=== PATIENT | male | born 1940 | race Caucasian/White ===

== ENCOUNTER → 2016-10-05 | Outpatient (REF) | payer MEDICARE ==
[2016-10-05 13:06] LABS: MEAN CORPUSCULAR HEMOGLOBIN 31.1 pg (27.0-33.0); MEAN CORPUSCULAR HGB CONC 33.3 g/dl (32.0-36.5); MEAN CORPUSCULAR VOLUME 93.3 fl (80.0-96.0); RED CELL DISTRIBUTION WIDTH 12.9 % (11.5-14.5); WHITE BLOOD COUNT 7.8 K/mm3 (4.0-10.0)
[2016-10-05 13:14] LABS: ALBUMIN/GLOBULIN RATIO 1.18 (1.00-1.93); ALKALINE PHOSPHATASE 99 U/L (45-117); ALT/SGPT 39 U/L (12-78); ANION GAP 4 MEQ/L (8-16); AST/SGOT 27 U/L (15-37); BILIRUBIN,TOTAL 0.4 MG/DL (0.2-1.0); BLOOD UREA NITROGEN 25 MG/DL (7-18); CALCIUM LEVEL 9.4 MG/DL (8.8-10.2); CARBON DIOXIDE LEVEL 31 MEQ/L (21-32); CHLORIDE LEVEL 107 MEQ/L (98-107); CHOLESTEROL LEVEL 207 MG/DL (<200); CREATININE FOR GFR 1.23 MG/DL (0.70-1.30); FREE T4 1.12 NG/DL (0.76-1.46); GLOMERULAR FILTRATION RATE > 60.0 (>42); GLUCOSE, FASTING 95 MG/DL (83-110); POTASSIUM SERUM 4.7 MEQ/L (3.5-5.1); SODIUM LEVEL 142 MEQ/L (136-145); TOTAL PROTEIN 7.4 GM/DL (6.4-8.2); TRIGLYCERIDES LEVEL 349 MG/DL (<150)
[2016-10-05 13:17] LABS: INR 0.98
== END ==
LOC: M SFHCADAM 09:30
PROVIDERS: ATTEND Family Medicine
DX: R23.8 Other skin changes (principal); D51.9 Vitamin B12 deficiency anemia, unspecified; E03.9 Hypothyroidism, unspecified; E78.2 Mixed hyperlipidemia; M10.9 Gout, unspecified; N18.2 Chronic kidney disease, stage 2 (mild); E55.9 Vitamin D deficiency, unspecified; R97.20 Elevated prostate specific antigen [PSA]; Z79.899 Other long term (current) drug therapy; I11.9 Hypertensive heart disease without heart failure
CPT/HCPCS: 69210; 80053; 80061; 82306; 84153; 84439; 84443; 84550; 85027; 85610; 85730; G0463

== ENCOUNTER → 2016-11-22 | Outpatient (CLI) | payer MEDICARE ==
--- NOTE | 2016-11-25 14:16 | ECHO ---
DATE OF PROCEDURE: 11/22/2016 REFERRING PHYSICIAN: Dr. Deangelo Blankenship INDICATION: Dyspnea. HEIGHT: 61 inches. WEIGHT: 190 pounds. 2D MEASUREMENTS: Left atrium: 3.7 cm Aortic root: 3.1 cm Ventricular septum: 1.07 cm Posterior wall: 1.92 cm Left ventricle diastole: 4.3 cm DOPPLER MEASUREMENTS: Very mild aortic stenosis. Mild to moderate aortic regurgitation. Aortic regurgitation pressure 435 ms. Peak aortic valve gradient: 21 mmHg. Mean aortic valve gradient: 11 mmHg. Peak aortic valve velocity: 227 cm/s LVOT velocity: 117 cm/s LVOT/VTI: 26.2 cm Trace mitral regurgitation. Mitral E velocity: 125 cm/s Mitral A velocity: 140 cm/s Mitral deceleration time: 401 ms Trace tricuspid regurgitation. Pulmonary systolic pressure 17 mmHg by pulmonary acceleration time. MITRAL ANNULAR TISSUE DOPPLER: E-prime septal: 5.6 cm/s E-prime lateral: 4.8 cm/s DESCRIPTION: Rhythm was sinus bradycardia. No pericardial effusion. Image quality was moderately difficult. This is a 2D, M-mode, color flow Doppler, and pulse wave Doppler examination, including mitral annular tissue Doppler. CONCLUSIONS: 1. Normal left ventricular internal dimensions and wall thickness. Normal left ventricular wall motion and wall thickening. Normal left ventricular systolic function. Left ventricular ejection fraction of 70% by visual estimate. Grade 1 left ventricular diastolic dysfunction. 2. Moderate aortic valve sclerosis of a three-cuspid aortic valve. Very mild aortic stenosis and mild-moderate aortic regurgitation. 3. Moderate mitral annular calcification. Moderate focal thickening of the anterior mitral leaflet. No mitral stenosis. Trace mitral regurgitation.
== END ==
LOC: M CARPUL 09:03
PROVIDERS: ATTEND Family Medicine
DX: R06.09 Other forms of dyspnea (principal)

== ENCOUNTER → 2016-12-19 | Outpatient (REF) | payer MEDICARE ==
[2016-12-19 13:08] LABS: MEAN CORPUSCULAR HEMOGLOBIN 31.6 pg (27.0-33.0); MEAN CORPUSCULAR HGB CONC 33.5 g/dl (32.0-36.5); MEAN CORPUSCULAR VOLUME 94.3 fl (80.0-96.0); RED CELL DISTRIBUTION WIDTH 13.3 % (11.5-14.5); WHITE BLOOD COUNT 11.2 K/mm3 (4.0-10.0)
[2016-12-19 13:40] LABS: ALBUMIN 3.7 GM/DL (3.2-5.2); ALBUMIN/GLOBULIN RATIO 1.09 (1.00-1.93); BILIRUBIN,TOTAL 0.4 MG/DL (0.2-1.0); CALCIUM LEVEL 9.5 MG/DL (8.8-10.2); CREATININE FOR GFR 1.64 MG/DL (0.70-1.30); GLOMERULAR FILTRATION RATE 43.9 (>42); POTASSIUM SERUM 4.9 MEQ/L (3.5-5.1); TOTAL PROTEIN 7.1 GM/DL (6.4-8.2)
== END ==
LOC: M SFHCADAM 10:14
PROVIDERS: ATTEND Family Medicine
DX: N18.2 Chronic kidney disease, stage 2 (mild) (principal); R39.89 Other symptoms and signs involving the genitourinary system
CPT/HCPCS: 80053; 81001; 85027; 87088; 87186; G0463

== ENCOUNTER → 2017-04-13 | Outpatient (REF) | payer MEDICARE ==
[2017-04-13 19:33] LABS: MEAN CORPUSCULAR HEMOGLOBIN 30.7 pg (27.0-33.0); MEAN CORPUSCULAR VOLUME 92.8 fl (80.0-96.0); PLATELET COUNT, AUTOMATED 142 10^3/uL (150-450); RED CELL DISTRIBUTION WIDTH 12.7 % (11.5-14.5); WHITE BLOOD COUNT 7.7 10^3/uL (4.0-10.0)
[2017-04-13 19:40] LABS: ALBUMIN 3.8 GM/DL (3.2-5.2); ALBUMIN/GLOBULIN RATIO 1.27 (1.00-1.93); BILIRUBIN,TOTAL 0.5 MG/DL (0.2-1.0); CALCIUM LEVEL 9.2 MG/DL (8.8-10.2); CREATININE FOR GFR 1.47 MG/DL (0.70-1.30); GLOMERULAR FILTRATION RATE 49.9 (>42); TOTAL PROTEIN 6.8 GM/DL (6.4-8.2)
[2017-04-13 19:42] LABS: POTASSIUM SERUM 5.6 MEQ/L (3.5-5.1)
== END ==
LOC: M SFHCADAM 11:34
PROVIDERS: ATTEND Physician Assistant
DX: N30.00 Acute cystitis without hematuria (principal)
CPT/HCPCS: 80053; 85027; G0463

== ENCOUNTER → 2017-04-30 | Outpatient (REF) | payer MEDICARE | LOC: M SMT 13:05 | PROVIDERS: ATTEND Urology | DX: N39.0 Urinary tract infection, site not specified (principal) | CPT/HCPCS: 51798; 81001; 87088; 87186; G0463 ==

== ENCOUNTER → 2017-05-28 | Outpatient (REF) | payer MEDICARE | LOC: M SMT 13:38 | PROVIDERS: ATTEND Urology | DX: N39.0 Urinary tract infection, site not specified (principal) | CPT/HCPCS: 51798; 87086; G0463 ==

== ENCOUNTER → 2017-10-18 | Outpatient (REF) | payer MEDICARE ==
[2017-10-18 13:59] LABS: VITAMIN B12 LEVEL 769 PG/ML
[2017-10-18 14:02] LABS: URIC ACID 5.7 MG/DL (3.5-7.2)
[2017-10-18 14:02] LABS: RHEUMATOID FACTOR QUANT < 10.0 IU/ML (<15.0); TOTAL PROTEIN 7.5 GM/DL (6.4-8.2)
[2017-10-18 14:25] LABS: ERYTHROCYTE SEDIMENTATION RATE 15 mm/hr (0-20)
[2017-10-18 14:56] LABS: ESTIMATED AVERAGE GLUCOSE 131 MG/DL (60-110); HEMOGLOBIN A1c 6.2 %
[2017-10-22 11:00] LABS: ALBUMIN 4.36 GM/DL (3.29-5.55); ALBUMIN % 58.1 % (55.8-66.1); ALPHA-1-GLOBULIN % 4.2 % (2.9-4.9); ALPHA-1-GLOBULINS 0.32 GM/DL (0.17-0.41); ALPHA-2-GLOBULINS 0.86 GM/DL (0.42-0.99); ALPHA-2-GLOBULINS % 11.4 % (7.1-11.8); BETA-1-GLOBULINS 0.44 GM/DL (0.28-0.60)
[2017-10-22 11:01] LABS: BETA-1-GLOBULINS % 5.9 % (4.7-7.2); BETA-2-GLOBULINS 0.46 GM/DL (0.19-0.55); BETA-2-GLOBULINS % 6.1 % (3.2-6.5); GAMMA GLOBULIN % 14.3 % (11.1-18.8); GAMMA GLOBULINS 1.07 GM/DL (0.65-1.58)
[2017-10-23 00:06] LABS: ANTINUCLEAR ANTIBODIES DIRECT Negative (Negative); VITAMIN B6,PYRIDOXAL PHOSPHATE 3.2 ug/L (5.3-46.7); VITAMIN E(ALPHA TOCOPHEROL) 11.8 mg/L (9.0-29.0); VITAMIN E(GAMMA TOCOPHEROL) 3.7 mg/L (0.5-4.9)
[2017-10-23 09:07] LABS: DRVV SCREEN 45.9 SEC; PTT LUPUS TYPE ANTICOAG SCREEN 1.1 (0-1.2)
== END ==
LOC: M LABNEURO 11:14
DX: G62.9 Polyneuropathy, unspecified (principal)
CPT/HCPCS: 82746

== ENCOUNTER → 2017-11-28 | Outpatient (REF) | payer MEDICARE ==
[2017-11-28 12:35] LABS: HEMOGLOBIN 15.6 g/dl (13.5-17.5); MEAN CORPUSCULAR HEMOGLOBIN 30.6 pg (27.0-33.0); MEAN CORPUSCULAR HGB CONC 33.2 g/dl (32.0-36.5); MEAN CORPUSCULAR VOLUME 92.2 fl (80.0-96.0); PLATELET COUNT, AUTOMATED 178 10^3/uL (150-450); RED CELL DISTRIBUTION WIDTH 13.3 % (11.5-14.5); WHITE BLOOD COUNT 14.7 10^3/uL (4.0-10.0)
[2017-11-28 13:17] LABS: ALBUMIN 3.9 GM/DL (3.2-5.2); ALBUMIN/GLOBULIN RATIO 1.18 (1.00-1.93); ALKALINE PHOSPHATASE 96 U/L (45-117); ALT/SGPT 46 U/L (12-78); ANION GAP 8 MEQ/L (8-16); AST/SGOT 15 U/L (7-37); BILIRUBIN,TOTAL 0.4 MG/DL (0.2-1.0); BLOOD UREA NITROGEN 44 MG/DL (7-18); CALCIUM LEVEL 9.2 MG/DL (8.8-10.2); CARBON DIOXIDE LEVEL 24 MEQ/L (21-32); CHLORIDE LEVEL 106 MEQ/L (98-107); CHOLESTEROL LEVEL 185 MG/DL (<200); CHOLESTEROL RISK RATIO 6.379 (<5); CREATININE FOR GFR 1.42 MG/DL (0.70-1.30); GLOMERULAR FILTRATION RATE 51.7 (>42); GLUCOSE, FASTING 116 MG/DL (70-100); HDL CHOLESTEROL 29 MG/DL (>40); LDL CHOLESTEROL 94.8 MG/DL (<100); NON-HDL-C 156 MG/DL; SODIUM LEVEL 138 MEQ/L (136-145); TOTAL PROTEIN 7.2 GM/DL (6.4-8.2); TRIGLYCERIDES LEVEL 306 MG/DL (<150); URIC ACID 4.7 MG/DL (3.5-7.2)
== END ==
LOC: M SFHCADAM 10:28
DX: N18.2 Chronic kidney disease, stage 2 (mild) (principal); I11.9 Hypertensive heart disease without heart failure; M10.9 Gout, unspecified; E78.2 Mixed hyperlipidemia; G90.09 Other idiopathic peripheral autonomic neuropathy; E53.1 Pyridoxine deficiency; E03.9 Hypothyroidism, unspecified; D51.9 Vitamin B12 deficiency anemia, unspecified; I13.10 Hypertensive heart and chronic kidney disease without heart failure, with stage 1 through stage 4 chronic kidney disease, or unspecified chronic kidney disease; R97.20 Elevated prostate specific antigen [PSA]; E74.9 Disorder of carbohydrate metabolism, unspecified; N40.1 Benign prostatic hyperplasia with lower urinary tract symptoms; Z79.899 Other long term (current) drug therapy
CPT/HCPCS: 84550

== ENCOUNTER → 2018-10-23 | Outpatient (REF) | payer MEDICARE ==
[2018-10-23 12:27] LABS: HEMATOCRIT 44.5 % (42.0-52.0); HEMOGLOBIN 14.2 g/dl (13.5-17.5); MEAN CORPUSCULAR HEMOGLOBIN 29.7 pg (27.0-33.0); MEAN CORPUSCULAR HGB CONC 31.9 g/dl (32.0-36.5); MEAN CORPUSCULAR VOLUME 93.1 fl (80.0-96.0); PLATELET COUNT, AUTOMATED 151 10^3/uL (150-450); RED BLOOD COUNT 4.78 10^6/uL (4.30-6.10); WHITE BLOOD COUNT 10.7 10^3/uL (4.0-10.0)
[2018-10-23 12:41] LABS: ALBUMIN 3.6 GM/DL (3.2-5.2); BILIRUBIN,TOTAL 0.4 MG/DL (0.2-1.0); CALCIUM LEVEL 9.1 MG/DL (8.8-10.2); CHOLESTEROL RISK RATIO 6.4 (<5); CREATININE FOR GFR 1.45 MG/DL (0.70-1.30); FREE T4 1.53 NG/DL (0.76-1.46); GLOMERULAR FILTRATION RATE 50.4 (>42); POTASSIUM SERUM 4.6 MEQ/L (3.5-5.1); THYROID STIMULATING HORMONE 0.119 uIU/ML (0.358-3.740); TOTAL PROTEIN 6.7 GM/DL (6.4-8.2); URIC ACID 4.9 MG/DL (3.5-7.2)
[2018-10-23 12:43] LABS: TOTAL 25(OH) VITAMIN D 57.5 NG/ML (30.0-100.0)
== END ==
LOC: M SFHCADAM 08:52
PROVIDERS: ATTEND Family Medicine
DX: N18.2 Chronic kidney disease, stage 2 (mild) (principal); E11.22 Type 2 diabetes mellitus with diabetic chronic kidney disease; E03.9 Hypothyroidism, unspecified; E78.2 Mixed hyperlipidemia; Z12.5 Encounter for screening for malignant neoplasm of prostate; M10.9 Gout, unspecified; E55.9 Vitamin D deficiency, unspecified
CPT/HCPCS: 80053; 80061; 82306; 84439; 84443; 84550; 85027; G0103

== ENCOUNTER → 2018-12-18 | Outpatient (CLI) | payer MEDICARE ==
[~2018-12-18] MED LIST: BIMA01SOL OU; BISO5TAB5 PO; CIDA500T2 PO; COSO1SOL3 OD; D 50CAP3 PO; EUFL10IN IX; FEBU40TA PO; FLOM0.4C39 PO; LEVO175T2 PO; LISI-542 PO; LYRI75CA PO; NEUR600T PO; PROS5TAB PO; TRUS1SOL OU
[2018-12-18 09:39] LABS: HEMATOCRIT 44.7 % (42.0-52.0); HEMOGLOBIN 14.6 g/dl (13.5-17.5); MEAN CORPUSCULAR HEMOGLOBIN 30.4 pg (27.0-33.0); MEAN CORPUSCULAR HGB CONC 32.7 g/dl (32.0-36.5); MEAN CORPUSCULAR VOLUME 93.1 fl (80.0-96.0); PLATELET COUNT, AUTOMATED 143 10^3/uL (150-450); WHITE BLOOD COUNT 8.3 10^3/uL (4.0-10.0)
[2018-12-18 09:53] LABS: INR 0.99; PROTHROMBIN TIME 12.8 SECONDS (11.8-14.0)
[2018-12-18 10:06] LABS: ALBUMIN 3.6 GM/DL (3.2-5.2); BILIRUBIN,TOTAL 0.4 MG/DL (0.2-1.0); CALCIUM LEVEL 9.5 MG/DL (8.8-10.2); CREATININE FOR GFR 1.74 MG/DL (0.70-1.30); GLOMERULAR FILTRATION RATE 40.8 (>42); TOTAL PROTEIN 6.9 GM/DL (6.4-8.2)
--- NOTE | 2018-12-18 10:23 | REP ---
Clinical: Preoperative assessment for right knee arthroplasty . Comparison: None . Technique: PA and lateral. Findings: The mediastinum and cardiac silhouette are normal. The lung pearce are clear and without acute consolidation, effusion, or pneumothorax. The skeletal structures are intact and normal. Impression: 1. No acute cardiopulmonary process. Electronically Signed by Riley Gil MD 12/18/2018 10:14 A
[2018-12-18 10:37] LABS: ERYTHROCYTE SEDIMENTATION RATE 16 mm/hr (0-20)
--- NOTE | 2018-12-19 23:59 | ECGEPIP ---
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
== END ==
LOC: M LAB 08:58
PROVIDERS: ATTEND Orthopaedic Surgery
DX: M17.11 Unilateral primary osteoarthritis, right knee (principal); I44.7 Left bundle-branch block, unspecified

== ENCOUNTER → 2019-01-01 | Outpatient (REF) | payer MEDICARE ==
[~2019-01-01] MED LIST changes: +CIPR-249 PO; +KEFL500C17 PO; +PERC5TAB12 PO; +XARE10TA PO
[2019-01-01 12:51] LABS: FREE T4 1.05 NG/DL (0.76-1.46); THYROID STIMULATING HORMONE 0.304 uIU/ML (0.358-3.740)
== END ==
LOC: M SFHCADAM 10:25
PROVIDERS: ATTEND Family Medicine
DX: E03.9 Hypothyroidism, unspecified (principal)
CPT/HCPCS: 84439; 84443; G0463

== ENCOUNTER 2019-01-08 06:45 | Inpatient (IN) | payer MEDICARE ==
--- NOTE | 2019-01-06 16:18 | HPE ---
DATE OF ADMISSION: 01/08/2019 CHIEF COMPLAINT: Right knee pain. HISTORY OF PRESENT ILLNESS: Mr. South is a pleasant, 78-year-old male with progressively worsening right knee pain and stiffness. He has failed to improve with conservative treatment. He has elected for surgery for his continued symptoms. He has pain with weightbearing activities and his activities of daily living. X-rays of his knee are notable for advanced osteoarthritis of the right knee joint. He has consented for a right total knee arthroplasty by Dr. Camden Calderon. Medical optimization was performed by Dr. Blankenship. ALLERGIES: SULFUR and PENICILLIN. CURRENT MEDICATIONS: - levothyroxine - bisoprolol - Uloric - Lumigan eye drops - Timolol eye drops - Flomax - vitamin B6 - vitamin B12 injection and iron - Tylenol as needed PAST MEDICAL HISTORY: Includes high blood pressure and hypothyroidism. PAST SURGICAL HISTORY: Includes appendix, gallbladder surgery, cataracts removal of both eyes. SOCIAL HISTORY: This gentleman is retired. He does not smoke, occasionally drinks alcohol. FAMILY HISTORY: Is noncontributory. REVIEW OF SYSTEMS: This patient denies chest pain, heart palpitations, cough, wheezing, difficulty breathing and shortness of breath. He denies abdominal pain, nausea, vomiting, diarrhea, or constipation. He denies recent upper respiratory infection or urinary tract infection symptoms. He does complain of persistent pain in the right knee. PHYSICAL EXAMINATION: General: He is well-nourished, well-developed, in no acute distress, alert male patient. He ambulates with a moderate limp favoring the right side. He is not using assistive devices. Vital signs: He is 70 inches tall, weighs 192.6 pounds with a temperature of 97.4, blood pressure 120/62, pulse of 63, and respirations of 14. Neck was supple without adenopathy or jugular venous distension. There were no carotid bruits appreciated upon auscultation. Lungs were clear to auscultation without rales or wheeze throughout. Heart: Regular rate and rhythm. Abdomen: Bowel sounds were present. Extremities: Examination of the knee revealed intact skin. Patient had decreased range of motion secondary to pain and stiffness. The limb is neurovascularly intact. Chest x-ray showed no acute cardiopulmonary disease processes. EKG showed sinus rhythm with a left bundle branch block at 72 beats per minute. ProTime 12.8, INR 0.99. Glucose 121, BUN 28, creatinine 1.74 for a GFR of 40.8. Sodium 141, potassium 5.0. CBC showed a platelet count of 143, otherwise within normal limits with a sed rate of 16. IMPRESSION: Symptomatic osteoarthritis of the right knee joint. PLAN: Consented for a right total knee arthroplasty by Dr. Camden Calderon.
[2019-01-08] VITALS (7 sets, daily range): BP systolic 119–141; BP diastolic 65–76
[~2019-01-08] VITALS: Ht 180.3 cm; Wt 89.7 kg
[~2019-01-08 06:45] MED LIST changes: -CIPR-249 PO; -KEFL500C17 PO; +LR 1,000 ML IV ONE; -PERC5TAB12 PO; -XARE10TA PO
[2019-01-08] MEDS ORDERED: PROPOFOL 200 MG/20 ML VIAL As Ordered ONE (07:38)
[2019-01-08] MEDS ORDERED: CLINDAMYCIN 900 MG/50 ML PREMIX BAG As Ordered ONE (07:39)
[2019-01-08] MEDS ORDERED: BUPIVACAINE LIPOSOME/PF 1.3% 20ML VIAL (13.3MG/ML)(EXPAREL)(C9290 PER1MG) As Ordered ONE (07:40)
[2019-01-08] MEDS ORDERED: LIDOCAINE 2% INJ 100 MG/5 ML SDV (FOR ANES.) As Ordered ONE (07:40)
[2019-01-08] MEDS ORDERED: dexameTHASONE 4 MG/ML 1ML VIAL (J1100) As Ordered ONE (07:40)
[2019-01-08] MEDS ORDERED: BUPIVACAINE/DEXTROSE 0.75% 2 ML AMP As Ordered ONE (07:40)
[2019-01-08] MEDS ORDERED: CLINDAMYCIN INJ 900MG/6ML VIAL As Ordered ONE (07:40)
[2019-01-08] MEDS ORDERED: TRANEXAMIC ACID 100 MG/ML 10ML VIAL As Ordered ONE (07:40)
[2019-01-08] MEDS ORDERED: ONDANSETRON 4MG/2ML VIAL (J2405) As Ordered ONE (07:40)
[2019-01-08] MEDS ORDERED: EPINEPHrine INJ 1 MG/ML 1ML AMP As Ordered ONE (07:40)
[2019-01-08] MEDS ORDERED: MIDAZOLAM INJ 2 MG/2 ML VIAL (J2250) As Ordered ONE ×2 (07:42→08:21)
[2019-01-08] MEDS ORDERED: fentaNYL 100 MCG/2 ML INJECTION (J3010) As Ordered ONE ×2 (07:42→08:21)
--- NOTE | 2019-01-08 07:43 | IPN ---
DATE: 01/08/2019 Patient seen and examined. He wishes to go ahead with a right knee arthroplasty. He understands the nature of the procedure, the risks of bleeding, infection, damage to nerves, vessels, persistent pain, wear loosening, blood clots, medical problems, among others. And a preoperative medical evaluation was done.
[2019-01-08] MEDS ORDERED: CLINDAMYCIN 900 MG in APPROPRIATE DILUENT 1 EA IV ONE (08:00)
[2019-01-08] MEDS ORDERED: CIPR-249 PO (08:16)
[2019-01-08] MEDS ORDERED: fentaNYL 100 MCG/2 ML INJECTION (J3010) IV ONE (09:00)
[2019-01-08] MEDS ORDERED: MIDAZOLAM INJ 2 MG/2 ML VIAL (J2250) IV ONE (09:00)
[2019-01-08] MEDS ORDERED: ePHEDrine SULFATE 25 MG/5 ML(5MG/ML) SYRINGE As Ordered ONE (09:55)
[2019-01-08] MEDS ORDERED: dexameTHASONE 10 MG/1 ML VIAL PRES.FREE (J1100) ONE (10:32)
[2019-01-08] MEDS ORDERED: EPINEPHrine INJ 1 MG/ML 1ML AMP ONE (10:32)
[2019-01-08] MEDS ORDERED: ROPIvacaine 0.5% 30 ML INJECTION (J2795 PER 1MG) ONE (10:32)
[2019-01-08] MEDS ORDERED: ONDANSETRON 4MG/2ML VIAL (J2405) IV PRN ×2 (11:30→12:00)
[2019-01-08] MEDS: LR 1,000 ML IV SCH (11:30)
[2019-01-08] MEDS ORDERED: FLEET ENEMA PR PRN (11:30)
[2019-01-08] MEDS ORDERED: MORPHINE 4 MG/ML 1ML VIAL/SYRINGE (J2270) IV PRN ×2 (11:30)
[2019-01-08] MEDS ORDERED: ACETAMINOPHEN TAB 650MG DOSE (2X325MG) PO PRN (11:30)
--- NOTE | 2019-01-08 11:45 | REP ---
Right knee two views postoperative study: There is a total knee arthroplasty with the components tightly applied and in satisfactory positions alignment. Intra-articular air and fluid are incidentally identified is a postsurgical change. Skin osman are incidentally noted. Electronically Signed by Louis Cobian MD 01/08/2019 11:35 A
[2019-01-08] MEDS ORDERED: oxyCODONE 5MG TAB PO PRN (12:00)
[2019-01-08] MEDS ORDERED: fentaNYL 100 MCG/2 ML INJECTION (J3010) IV PRN (12:00)
[2019-01-08] MEDS ORDERED: LR 1,000 ML IV SCH (12:00)
[2019-01-08] MEDS: NORCO, ANEXSIA 5/325MG TABLET (HYDROcodone/ACETAMINOPHEN) PO PRN ×2 (14:54→20:28)
--- NOTE | 2019-01-08 15:33 | CR.PDOC ---
General Date of Consultation: Jan 08, 2019 Consultation REASON FOR CONSULTATION/CHIEF COMPLAINT: Presented to [facility] for an elective orthopedic procedure HISTORY OF PRESENT ILLNESS: Patient is a 78-year-old male with a past medical history of hypertension, hypothyroidism, BPH and glaucoma who presented to [facility] for an elective procedure with orthopedic surgery. Patient has received medical clearance from his outpatient provider, Dr. Blankenship. Patient received blood work, EKG and chest x-ray and did not require cardiac clearance. Patient has reported that hes been expressing knee pain for 5-6 years and has failed conservative measures. Patient is seen postoperatively for his total right knee arthroplasty. . He denies headache, nausea, vomiting, chest pain, shortness of breath, cough, abdominal pain, constipation, diarrhea or discomfort with urination. . He has not expense any fevers or chills in the last 2 weeks. Patient reports that his appetite is normal and denies any significant change in his weight. ALLERGIES: Please see below. HOME MEDICATIONS: Please see below. PAST MEDICAL HISTORY: Hypertension, hypothyroidism, BPH and glaucoma PAST SURGICAL HISTORY: Appendectomy Bilateral cataract excision FAMILY HISTORY: - Mother and father have no reported medical problems SOCIAL HISTORY: - Denies the use of alcohol or illicit drugs; patient is an ex-smoker - quit 15 years ago - Denies recent travel or sick contacts - Lives with in [place] - Occupation; was a superintendent production REVIEW OF SYSTEMS: 10 point review of systems complete, all negative otherwise stated in HPI PHYSICAL EXAMINATION: - Vitals: BP 119/71, HR 85, RR 18, Sat 96%RA, Temp 97.8F - General: Lying in bed, No acute distress, Speaking in full sentences, AAOx3 - HEENT: NC, AT, PERRLA - CVS:+S1S2 - Lungs: Fair air entry bilaterally, No appreciable wheezing / rales / rhonchi - Abdomen: Soft, Non-distended, Non-tender - Extremities: No lower extremity edema, No calf tenderness, left knee in dressing - Neuro: No focal motor or sensory deficit - Skin: No visible rashes LABORATORY DATA: Please see below. ASSESSMENT/PLAN: Right knee pain - s/p total right knee arthroplasty (POD#0) - Presented to [facility] for an elective orthopedic procedure - Has received medical clearance from his outpatient provider, Dr. Wetterhahn - Pain control, anticoagulation and physical therapy at the direction of orthopedic surgery Hypertension - c/w Lisinopril and Bisoprolol with holding parameters Hypothyroidism - c/w Levothyroxine BPH - c/w Finasteride and Tamsulosin Gout - c/w Febuxostat Glaucoma - c/w Eye drops Vitamin D deficiency - c/w Supplementation DVT prophylaxis - As per orthopedic surgery Vital Signs/I&O Vital Signs Date Time Temp Pulse Resp B/P (MAP) Pulse Ox O2 Delivery O2 Flow Rate FiO2 01/08/19 15:15 97.8 85 18 119/71 (87) 96 01/08/19 09:15 4 Allergies Coded Allergies: Penicillins (Verified Allergy, Intermediate, HIVES, 12/25/18) Sulfa (Sulfonamide Antibiotics) (Verified Allergy, Unknown, 12/25/18) brimonidine (Verified Allergy, Unknown, 12/25/18) Home Medications Scheduled Bimatoprost (Lumigan) 0.01% 2.5ML Drops, 1 DROP OU QPM for 30 Days, #2.5 (Reported) Bisoprolol Fumarate (Bisoprolol Fumarate) 5 Mg Tablet, 2.5 MG PO DAILY, (Reported) Cholecalciferol (Vitamin D3) (Vitamin D3) 5,000 Unit Capsule, 5,000 UNIT PO DAILY, (Reported) Ciprofloxacin HCl (Cipro) 500 Mg Tablet, 500 MG PO BID for 7 Days, #14 (Reported) Dorzolamide HCl/Timolol Maleat (Cosopt Eye Drops) 10 Ml Drops, 1 DROP OD BID, (Reported) Febuxostat (Uloric) 40 Mg Tablet, 40 MG PO DAILY, (Reported) Finasteride (Proscar) 5 Mg Tablet, 5 MG PO DAILY, (Reported) Levothyroxine Sodium (Levothyroxine Sodium) 175 Mcg Tablet, 175 MCG PO DAILY, (Reported) Lisinopril (Lisinopril) 5 Mg Tablet, 5 MG PO DAILY, (Reported) Pregabalin (Lyrica) 75 Mg Capsule, 75 MG PO BID, (Reported) Tamsulosin HCl (Flomax) 0.4 Mg Capsule, 1 CAP PO DAILY, (Reported) once daily 1/2 hour following the same meal each day SIMEON SADLER MD Jan 08, 2019 15:33
[2019-01-08] MEDS: CLINDAMYCIN 900 MG in APPROPRIATE DILUENT 1 EA IV SCH (16:12)
[2019-01-08] MEDS: LATANOPROST 0.005% OPHTH SOLN 2.5 ML OU SCH (20:26)
[2019-01-08] MEDS: COSOPT OCUMETER PLUS 10ML (DORZOLAMIDE/TIMOLOL) OD SCH (20:26)
[2019-01-08] MEDS: PREGABALIN 75 MG CAP(LYRICA) PO SCH (20:27)
[2019-01-09] MEDS: CLINDAMYCIN 900 MG in APPROPRIATE DILUENT 1 EA IV SCH (00:26)
[2019-01-09] MEDS: LR 1,000 ML IV SCH (00:50)
[2019-01-09] MEDS: NORCO, ANEXSIA 5/325MG TABLET (HYDROcodone/ACETAMINOPHEN) PO PRN (01:58)
[2019-01-09 02:00] VITALS: BP 150/66
[2019-01-09] MEDS: NS 0.45% 1,000 ML IV SCH ×3 (02:00→17:06)
[2019-01-09 06:00] VITALS: BP 124/72
[2019-01-09] MEDS ORDERED: ONDANSETRON 4 MG TAB (S0181) PO PRN (06:00)
[2019-01-09] MEDS: LEVOTHYROXINE 75MCG TABLET (0.075MG) PO SCH (06:11)
[2019-01-09] MEDS: LEVOTHYROXINE 100MCG TABLET (0.1MG) PO SCH (06:11)
[2019-01-09] MEDS: PERCOCET 5MG/325MG TAB PO PRN ×3 (06:12→22:25)
[2019-01-09 06:26] LABS: MEAN CORPUSCULAR HEMOGLOBIN 30.4 pg (27.0-33.0); MEAN CORPUSCULAR HGB CONC 33.3 g/dl (32.0-36.5); MEAN CORPUSCULAR VOLUME 91.1 fl (80.0-96.0); PLATELET COUNT, AUTOMATED 143 10^3/uL (150-450); RED BLOOD COUNT 4.28 10^6/uL (4.30-6.10)
[2019-01-09 06:49] LABS: CALCIUM LEVEL 9.2 MG/DL (8.8-10.2); CREATININE FOR GFR 1.99 MG/DL (0.70-1.30); MAGNESIUM LEVEL 1.8 MG/DL (1.8-2.4); PHOSPHORUS LEVEL 3.7 MG/DL (2.5-4.9); POTASSIUM SERUM 4.8 MEQ/L (3.5-5.1)
[2019-01-09] MEDS ORDERED: PERC5TAB12 PO (06:55)
[2019-01-09] MEDS ORDERED: XARE10TA PO (06:56)
[2019-01-09] MEDS: ceFAZolin SOD 1 GM in D5W MINI-BAG PLUS 50 ML IV SCH ×2 (08:22→21:29)
[2019-01-09] MEDS: PREGABALIN 75 MG CAP(LYRICA) PO SCH ×2 (08:23→21:29)
[2019-01-09] MEDS: FEBUXOSTAT 40 MG TABLET (ULORIC) PO SCH (08:23)
[2019-01-09] MEDS: MIRALAX *UNIT DOSE* 17GM PACKET PO SCH (08:23)
[2019-01-09] MEDS: BISOPROLOL FUM 2.5 MG PER 1/2TAB PO SCH (08:23)
[2019-01-09] MEDS: VITAMIN D 1,000 INTERNATIONAL UNITS TABLET PO SCH (08:23)
[2019-01-09] MEDS: MOM 30ML SUSPENSION UDC PO SCH (08:23)
[2019-01-09] MEDS: FINASTERIDE 5 MG TAB PO SCH (08:23)
[2019-01-09] MEDS: COSOPT OCUMETER PLUS 10ML (DORZOLAMIDE/TIMOLOL) OD SCH ×2 (08:24→21:29)
--- NOTE | 2019-01-09 08:32 | IPN ---
DATE: 01/09/2019 I am trying to decide on antibiotic therapy for Mr. South's urinary issue. I want to avoid quinolones as he is in acute kidney injury. He has penicillin listed as an allergy. Further discussion of the case that this was a childhood reaction with a rash. There was no anaphylaxis, angioedema, and he said it happened so long ago he was not sure even what his reaction was. Therefore, per current guidelines, it should be safe to use Ancef and I have ordered a gram every 12 hours the dose adjusted for renal function.
--- NOTE | 2019-01-09 08:39 | IPN ---
DATE: 01/09/2019 Richard is seen on 5 [place] postoperatively. He underwent a right knee replacement yesterday. He is manifesting some acute kidney injury with a creatinine of 1.99 (baseline 1.4). On further discussion, Richard reveals that he was actually in [facility] emergency room on 01/06/2019 diagnosed with a urinary tract infection, put on Cipro, but per patient was told that it was safe for him to proceed with his joint replacement. So, he did not mention this to anyone when he came in yesterday for his joint replacement surgery, having been reassured that he could safely proceed by the provider at [facility]. Now he has some acute kidney injury and apparently has been taking Cipro. Denies chest pain, shortness of breath. His oral intake was decreased the last few days secondary to feeling ill from the UTI. PHYSICAL EXAMINATION: 124/71, pulse 97, respiratory rate 18, 96% oxygen saturation. General appearance: Alert and conversant, in no distress. Lungs: Clear. Heart: Regular rate and rhythm with a 2/6 systolic ejection murmur. Abdomen: Soft, nontender, no masses. No peripheral edema. LABS: Sodium 136, potassium 4.8, BUN 29, creatinine 1.99 (baseline 1.4). White count 21,000, hemoglobin 13, platelets 143. IMPRESSION: 1. Acute kidney injury. Probably from volume depletion due to poor oral intake prior to his surgery as well as some effects of the Cipro. I have ordered some half normal saline, repeat lab work ordered for the morning. I talked to orthopedics, I think he should stay overnight and will reassess whether he is stable for discharge tomorrow. 2. Suspected UTI. His symptoms could be prostatitis instead of a cystitis. He is having trouble emptying his bladder, burning and some perineal discomfort. I called [facility] and the cultures has not been resulted yet. I spoke to the charge nurse in the ER, I gave her my telephone number and asked her to called me when this comes out. If this is prostatitis it is likely that the urine culture will be negative. I would recommend we continue antibiotic therapy directed towards either a UTI or prostatitis in the meantime and I have ordered some Ancef. I should note he had an E. coli UTI 11/2016 that was pansensitive. 3. Aortic stenosis. This is mild and asymptomatic. 4. Hypertensive heart disease. I held his lisinopril in the face of acute kidney injury. 5. Gout. Continue Uloric 40 mg daily. 6. Benign prostatic hypertrophy (BPH). Continue Flomax 0.4 mg daily, Proscar 5 mg daily. 7. Hypothyroidism. Continue levothyroxine 150 mcg daily. Repeat labs have been ordered for the morning. Case discussed with orthopedics.
[2019-01-09] MEDS ORDERED: LISINOPRIL 5 MG TAB PO SCH (09:00)
--- NOTE | 2019-01-09 09:59 | IPN ---
DATE: 01/09/2019 The patient was seen and examined today. He seems to be doing overall reasonably well with his knee. He is having some soreness. His wound was completely benign. He is afebrile. I also discussed the case with Dr. Blankenship who was rounding on him today. Dr. Blankenship brought to my attention that the patient had been put on Cipro apparently Sunday or Sunday, 3-4 days ago for a urinary tract infection, and he is going to keep him on antibiotics. This was started at [facility]. I contacted the preoperative area and apparently the patient, according to the nurse (Myrtle) who I spoke with, had notified the nurse who was taking care of him that he was being treated for a urinary tract infection (UTI) but she had not documented it and had not notified me, and the patient did not notify me of this at all at any point, even though I talked to him preoperatively. Dr Blankenship was also not notified. In addition, it appears that the consulting hospitalist was not told by the patient. Myrtle indicated there would be some reeducation for the nurse involved. The patient is doing very well, and again, he was treated for a few days preoperatively for this UTI. KASSI
[2019-01-09 11:41] VITALS: BP 134/69
--- NOTE | 2019-01-09 13:12 | RO ---
DATE OF PROCEDURE: 01/08/2019 PREOPERATIVE DIAGNOSIS: Right knee osteoarthritis. POSTOPERATIVE DIAGNOSIS: Right knee osteoarthritis. PROCEDURE: Right total knee arthroplasty using us an ATTUNE rotating platform cruciate retaining size 6 femur and tibia, size 7 polyethylene, 35 patellar button. SURGEON: Camden Calderon MD CHIEF DIVERSITY OFFICER: SOFIE Peralta ANESTHESIA: Spinal ESTIMATED BLOOD LOSS: Less than 50 mL. INDICATION: 78-year-old man who has had some persistent right knee pain. He wished to ahead with surgical treatment. He was not felt to be a candidate for unicompartmental because he was pretty obese, had some varus alignment and patellofemoral arthritis. He understood the nature and risks associated with this. PROCEDURE: Patient was taken to operating room, placed in supine position after spinal anesthesia was induced. The right lower extremity was prepped and draped in the usual sterile fashion. Tourniquet was placed and inflated after a time out was performed. I created a longitudinal incision over the anterior aspect of the knee. Sharp dissection was carried down through subcutaneous tissue and then a medial parapatellar arthrotomy was performed per routine. Everted the patella, used the canal initiating reamer on the femoral side followed by the intramedullary guide set at 5 degrees of valgus, this was a 9 mm cut. This was pinned in place and the distal femoral cut was made, protecting soft tissues. I sized the femur to be a 6 and the remaining bone cuts were made in the usual fashion. I then prepared the tibia, freed up the PCL and made the proximal tibia cut using an alignment guide and appropriate amount of valgus and posterior slope set at 4, off the low side. The bone was removed, electric razor mechanic was used on either side of the knee and soft tissue and bone was removed from either side. I then prepared the tibia. This was drilled broached up. I did the sulcus cut on the femur in the usual fashion. We then placed trial components, put the knee through a range of motion. We also had used the spacer blocks and very pleased with the space on a 7 mm polyethylene. The trial components were placed and the 7 polyethylene had been inserted. I then freehand cut the patella removing 7 mm of bone, sized to be a 35. The patella drill holes were placed. The drill holes were placed at the end of the femur. The patella trial tracked very nicely. I then removed the trial components, irrigated copiously. I removed any osteophytes, placed the Exparel in the deep tissues. The assistant property manager prepared the bone cement in the modern technique and then I cemented on the tibia and femur, placed the polyethylene, removed excess bone cement, cemented on the patella, held this in place, removed excess bone cement, irrigated copiously, placed the TXA in the deep wound. I then irrigated, repaired the deep layer with #1 Vicryl suture and running STRATAFIX suture obtaining a watertight closure. I then irrigated and deflated the tourniquet when the cement had hardened and closed the subcu with #2-0 Vicryl, and the skin with osman. Sterile dressing was applied and he was taken to the recovery room in stable condition. There were no known complications. The plan will be routine postop. The assistant property manager was instrumental in holding retractors and assisting in mixing bone cement, assisting in wound closure and retraction.
[2019-01-09 13:58] VITALS: BP 131/65
[2019-01-09] MEDS ORDERED: RIVAROXABAN 10 MG TAB (XARELTO) PO SCH (18:00)
[2019-01-09] MEDS ORDERED: TAMSULOSIN 0.4 MG CAP PO SCH (20:00)
[2019-01-09] MEDS: LATANOPROST 0.005% OPHTH SOLN 2.5 ML OU SCH (21:29)
[2019-01-09 22:00] VITALS: BP 145/73
[2019-01-10] MEDS: PERCOCET 5MG/325MG TAB PO PRN ×2 (05:58→10:29)
[2019-01-10] MEDS: LEVOTHYROXINE 100MCG TABLET (0.1MG) PO SCH (05:58)
[2019-01-10] MEDS: LEVOTHYROXINE 75MCG TABLET (0.075MG) PO SCH (05:58)
[2019-01-10 06:00] VITALS: BP 145/74
[2019-01-10 06:49] LABS: HEMATOCRIT 36.5 % (42.0-52.0); HEMOGLOBIN 12.2 g/dl (13.5-17.5); MEAN CORPUSCULAR HEMOGLOBIN 31.3 pg (27.0-33.0); MEAN CORPUSCULAR HGB CONC 33.4 g/dl (32.0-36.5); MEAN CORPUSCULAR VOLUME 93.6 fl (80.0-96.0); PLATELET COUNT, AUTOMATED 130 10^3/uL (150-450); WHITE BLOOD COUNT 15.8 10^3/uL (4.0-10.0)
[2019-01-10 07:11] LABS: CALCIUM LEVEL 8.5 MG/DL (8.8-10.2); CREATININE FOR GFR 1.5 MG/DL (0.70-1.30); GLOMERULAR FILTRATION RATE 48.4 (>42); POTASSIUM SERUM 4.7 MEQ/L (3.5-5.1)
[2019-01-10] MEDS ORDERED: MAGNESIUM CITRATE 300 ML BTL PO PRN (07:45)
[2019-01-10] MEDS ORDERED: MAGNESIUM CITRATE 300 ML BTL PO ONE (08:00)
[2019-01-10] MEDS ORDERED: KEFL500C17 PO (08:21)
[2019-01-10] MEDS ORDERED: XARE10TA PO (08:21)
[2019-01-10] MEDS: FINASTERIDE 5 MG TAB PO SCH (08:39)
[2019-01-10] MEDS: MOM 30ML SUSPENSION UDC PO SCH (08:39)
[2019-01-10] MEDS: FEBUXOSTAT 40 MG TABLET (ULORIC) PO SCH (08:39)
[2019-01-10] MEDS: ceFAZolin SOD 1 GM in D5W MINI-BAG PLUS 50 ML IV SCH (08:39)
[2019-01-10] MEDS: MIRALAX *UNIT DOSE* 17GM PACKET PO SCH (08:40)
[2019-01-10] MEDS: PREGABALIN 75 MG CAP(LYRICA) PO SCH (08:40)
[2019-01-10] MEDS: VITAMIN D 1,000 INTERNATIONAL UNITS TABLET PO SCH (08:40)
[2019-01-10 08:44] VITALS: BP 120/70
[2019-01-10] MEDS: BISOPROLOL FUM 2.5 MG PER 1/2TAB PO SCH (08:44)
[2019-01-10] MEDS: COSOPT OCUMETER PLUS 10ML (DORZOLAMIDE/TIMOLOL) OD SCH (08:45)
[2019-01-10 10:00] VITALS: BP 139/77
--- NOTE | 2019-01-10 10:08 | IPNPDOC ---
Subjective Date Seen The patient was seen on 01/10/19. Subjective Chief Complaint/HPI Less discomfort with urination. No BM in 3 days per patient. No abd pain or n/v Constitutional: Denies: Chills, Fever Pulmonary: Denies: Dyspnea, Cough Cardiovascular: Denies: Chest Pain, Palpitations Gastrointestinal: Reports: Constipation; Denies: Nausea, Vomiting, Abdominal Pain, Diarrhea Genitourinary: Reports: Other Symptoms (pressure with urination - improving) Objective Physical Examination General Exam: Positive: Alert, No Acute Distress Chest Exam: Positive: Clear to auscultation; Negative: Rales, Rhonchi, Wheezing Heart Exam: Positive: Rate Normal, Regular Rhythm Abdomen Exam: Positive: Normal bowel sounds, Soft; Negative: Tenderness Extremity Exam: Negative: Edema Assessment /Plan Problems (1) Prostatitis Status: Acute Problem Text: Verbal report of U/C done at [facility] per nursing was negative Symptoms suggest prostatitis cont Flomax and Proscar D/C home on Keflex (2) Acute on chronic renal insufficiency Status: Resolved Problem Text: improved with IVF - BAck to baseline today Plan/VTE VTE Prophylaxis Ordered?: Yes Disposition Stabel for d/c home from medical perspective - f/u with Dr. Myrick next week VS, I&O, 24H, Fishbone Vital Signs/I&O Vital Signs Date Time Temp Pulse Resp B/P (MAP) Pulse Ox O2 Delivery O2 Flow Rate FiO2 01/10/19 08:44 96 120/70 01/10/19 06:30 16 01/10/19 06:00 99.7 95 01/08/19 09:15 4 I&O- Last 24 Hours up to 6 AM 01/10/19 06:00 Intake Total 1790 ml Output Total 2150 ml Balance -360 ml Laboratory Data 24H LABS Laboratory Tests 2 01/10/19 06:19: Nucleated Red Blood Cells % (auto) 0.0, Anion Gap 4L, Glomerular Filtration Rate 48.4, Blood Urea Nitrogen 33H, Creatinine 1.50H, Sodium Level 133L, Potassium Level 4.7, Chloride Level 101, Carbon Dioxide Level 28, Calcium Level 8.5L CBC/BMP Laboratory Tests 01/10/19 06:19 Red Blood Count 3.90 L, Mean Corpuscular Volume 93.6, Mean Corpuscular Hemog lobin 31.3, Mean Corpuscular Hemoglobin Concent 33.4, Red Cell Distribution Width 14.2, Calcium Level 8.5 L MAGGIE MYRICK PA-C Jan 10, 2019 10:08
== END 2019-01-10 11:30 | disposition home or self-care (01) | DRG 470 ==
LOC: M OR 06:45 → M MS5PR 13:40
PROVIDERS: ADMIT Orthopaedic Surgery; ATTEND Orthopaedic Surgery
PROC: 0SRC0J9 Replacement of Right Knee Joint with Synthetic Substitute, Cemented, Open Approach (ICD-10-PCS; principal; 2019-01-08 09:15)
DX: M17.11 Unilateral primary osteoarthritis, right knee (principal); N41.0 Acute prostatitis; E03.9 Hypothyroidism, unspecified; I12.9 Hypertensive chronic kidney disease with stage 1 through stage 4 chronic kidney disease, or unspecified chronic kidney disease; R26.89 Other abnormalities of gait and mobility; N40.0 Benign prostatic hyperplasia without lower urinary tract symptoms; H40.9 Unspecified glaucoma; M10.9 Gout, unspecified; N18.3 Chronic kidney disease, stage 3 (moderate); G47.33 Obstructive sleep apnea (adult) (pediatric); E66.9 Obesity, unspecified; G57.93 Unspecified mononeuropathy of bilateral lower limbs; E53.8 Deficiency of other specified B group vitamins; R73.03 Prediabetes; E78.00 Pure hypercholesterolemia, unspecified; N28.89 Other specified disorders of kidney and ureter; E55.9 Vitamin D deficiency, unspecified; Z98.41 Cataract extraction status, right eye; Z98.42 Cataract extraction status, left eye; I35.0 Nonrheumatic aortic (valve) stenosis; Z90.49 Acquired absence of other specified parts of digestive tract; Z79.899 Other long term (current) drug therapy; Z88.8 Allergy status to other drugs, medicaments and biological substances; Z88.0 Allergy status to penicillin; Z88.2 Allergy status to sulfonamides; Z68.28 Body mass index [BMI] 28.0-28.9, adult; Z87.891 Personal history of nicotine dependence; Z85.51 Personal history of malignant neoplasm of bladder

== ENCOUNTER 2019-01-25 18:38 | Emergency (ER) | payer MEDICARE ==
[~2019-01-25] VITALS: Ht 180.3 cm; Wt 93.0 kg
[~2019-01-25 18:38] MED LIST changes: +BISO5TAB14 PO; -BISO5TAB5 PO; +CIPR-249 PO; -COSO1SOL3 OD; +COSO1SOL3 OU; -FEBU40TA PO; +FEBU40TA4 PO; +KEFL500C17 PO; -LR 1,000 ML IV ONE; +PERC5TAB12 PO; +XARE10TA PO
[2019-01-25] MEDS ORDERED: SODIUM BICARBONATE 8.4% INJ 50MEQ 50 ML VIAL ONE (18:39)
[2019-01-25] MEDS ORDERED: EPINEPHrine 1MG/10ML SYRINGE 1.5IN ONE (18:39)
[2019-01-25 19:04] LABS: BASO # 0.2 10^3/uL (0.0-0.2); EOS # 0.2 10^3/uL (0.0-0.50); EOS % 1.3 % (0.0-3.0); HEMATOCRIT 36.3 % (42.0-52.0); LYMPH # 2.5 10^3/uL (1.5-4.5); MEAN CORPUSCULAR HEMOGLOBIN 29.3 pg (27.0-33.0); MEAN CORPUSCULAR HGB CONC 30.3 g/dl (32.0-36.5); MEAN CORPUSCULAR VOLUME 96.8 fl (80.0-96.0); MONO # 1.7 10^3/uL (0.0-0.8); MONO % 11.3 % (0.0-5.0); NEUTROPHILS # 9.9 10^3/uL (1.8-7.7); NEUTROPHILS % 66.5 % (36.0-66.0); PLATELET COUNT, AUTOMATED 285 10^3/uL (150-450); RED BLOOD COUNT 3.75 10^6/uL (4.30-6.10); WHITE BLOOD COUNT 14.9 10^3/uL (4.0-10.0)
[2019-01-25 19:12] LABS: INR 1.19; PROTHROMBIN TIME 14.8 SECONDS (11.8-14.0)
[2019-01-25 19:13] LABS: PARTIAL THROMBOPLASTIN TIME 30.3 SECONDS (25.0-38.4)
[2019-01-25] MEDS ORDERED: CYAN1000VL IM (19:37)
[2019-01-25] MEDS ORDERED: PROB500T8 PO (19:37)
[2019-01-25] MEDS ORDERED: DOPamine 400 MG/500 ML BAG IN D5W (800MCG/ML) (J1265) As Ordered ONE (19:40)
[2019-01-25 19:42] LABS: BILIRUBIN,DIRECT 0.1 MG/DL (0.0-0.2); BILIRUBIN,TOTAL 0.4 MG/DL (0.2-1.0); CALCIUM LEVEL 8.7 MG/DL (8.8-10.2); CK-MB VALUE MASS 88.6 NG/ML (<3.6); CREATININE FOR GFR 2.03 MG/DL (0.70-1.30); FREE T4 0.92 NG/DL (0.76-1.46); GLOMERULAR FILTRATION RATE 34.2 (>42); MAGNESIUM LEVEL 2.1 MG/DL (1.8-2.4); MB/CK RELATIVE INDEX 17.27 (< OR =4); PHOSPHORUS LEVEL 3.6 MG/DL (2.5-4.9); THYROID STIMULATING HORMONE 9.22 uIU/ML (0.358-3.740); TOTAL PROTEIN 6.1 GM/DL (6.4-8.2); TROPONIN I 9.72 NG/ML (< 0.10)
[2019-01-25] MEDS ORDERED: SODIUM BICARBONATE 8.4% INJ 50 ML SYRINGE IV STA ×2 (19:42→21:27)
[2019-01-25] MEDS ORDERED: DOPamine HCL 400 MG in IV 1 EA IV SCH (19:45)
[2019-01-25] MEDS ORDERED: LIDOCAINE 1% MDV 20ML VIAL As Ordered ONE (19:47)
[2019-01-25] MEDS ORDERED: LIDOCAINE 1% MDV 20ML VIAL SC ONE (20:00)
[2019-01-25] MEDS ORDERED: NOREPINEPHRINE BITARTRATE 8 MG in D5W 492 ML IV SCH (20:05)
[2019-01-25] MEDS ORDERED: NOREPINEPHRINE 4 MG/4 ML AMP As Ordered ONE (20:05)
[2019-01-25 20:32] VITALS: BP 58/28
[2019-01-25] MEDS ORDERED: EPINEPHrine 1MG/10ML SYRINGE 1.5IN IV STA ×4 (21:27)
[2019-01-25] MEDS ORDERED: NITROGLYCERIN IN D5W 25MG/250ML (100MCG/ML) As Ordered ONE (22:40)
--- NOTE | 2019-01-26 08:14 | RO ---
DATE OF PROCEDURE: 01/25/2019 INDICATION: Symptomatic bradycardia. PREPROCEDURE DIAGNOSIS: Symptomatic bradycardia POSTPROCEDURE DIAGNOSIS: Symptomatic bradycardia. PROCEDURE PERFORMED: Insertion of a temporary transvenous pacemaker. PROCEDURE PERFORMED BY: Tre Sultana MD WASHER CUTTER: None. ANESTHESIA: COMPLICATIONS: None. ESTIMATED BLOOD LOSS: 20 mL. PROCEDURE DESCRIPTION: Patient was prepped over the right anterior neck and the right pectoral region. I was fully draped in sterile gown and was wearing a mask and hat and wearing sterile gloves. Lidocaine 1% was used for local anesthetic. Sterile towels were applied to the working area over the right anterior neck and right pectoral region. I was able to get into the right internal jugular vein on at least four or five occasions, both with the plastic sheath as well as with the hollow steel needle, but was unable to successfully get the Guidewire to pass far enough to be confident to place the 6 [place] sheath. I went through two guidewires in the process of doing it. I therefore decided to switch to the right subclavian vein. I used a hollow steel needle and placed the needle into the skin in the region of the pectoral deltoid groove and before the suprasternal notch. I was able to successfully get venipuncture into the right subclavian vein through which I passed the Guidewire successfully. I then placed the 6 [place] sheath with introducer into the right subclavian vein. The Guidewire and introducer were removed leaving the 6 [place] sheath in place. I stitched the 6 [place] sheath to secure it to the pectoral muscle with the silk suture that came with the kit. Next, I took a balloon tip 5 [place] bipolar temporary transvenous pacemaker lead and placed it in the 6 [place] sheath and advanced it 40 cm with the balloon up and then deflated the balloon. The pacemaker lead was then hooked up to the pacing box and I was successfully capturing the ventricles. I tested the threshold and found the capture threshold to be 1.0 milliamps. No R waves were present. The device was set to an output of 6 milliamps. The side arm of the 6 [place] sheath was hooked up to the dopamine infusion. I flushed the side port with normal saline prior to having it connected to the dopamine. The total time it took for this procedure was 30 minutes.
--- NOTE | 2019-01-26 08:22 | REP ---
Clinical: Chest pain . Comparison: 12/18/2018 . Findings: Cardiomegaly is suggested and chronic interstitial changes are noted. Mild interstitial edema cannot be excluded. No focal consolidation. No definite effusion. No pneumothorax. Impression: Stable cardiomegaly and chronic changes. Cannot exclude mild interstitial edema. Electronically Signed by Riley Gil MD 01/26/2019 08:14 A
--- NOTE | 2019-01-26 08:22 | ECHO ---
DATE OF PROCEDURE: 01/25/2019 INDICATION: Abnormal ECG. HEIGHT: 71 inches WEIGHT: 93 kg This was a limited echocardiogram Doppler that was performed during cardiac arrest on this patient. Parasternal and apical views were acquired. 2D real time images and color flow Doppler were acquired. No measurements were obtained. Patient was ventricular paced. Images were moderately technically difficult. The left ventricle was severely globally hypokinetic with low cardiac output state. Left ventricle ejection fraction by visual estimate was 10-15%. Aortic valve was three-cuspid with severe focal thickening and focal calcific deposits. Severe reduction mobility of the aortic cusps. Anatomic appearance consistent with severe aortic stenosis. No significant aortic regurgitation. Moderate mitral annular calcification. No significant mitral regurgitation. Right ventricle systolic function was difficult to assess due to difficult visualization, but the right ventricle appeared normal in size. A right ventricle pacing lead was seen near the vicinity of the right ventricle apex. No pericardial effusion. CONCLUSIONS: 1. Degenerative, calcific aortic valve disease with severe aortic stenosis. No significant regurgitation. 2. Severely globally hypokinetic with severe reduction in overall LV systolic function. LVEF 10-15%. Low cardiac output state. 3. No pericardial effusion. 4. Moderate mitral annular calcification. 5. Presence of temporary pacemaker lead in the right ventricle apex. cc: MD Percy Rose MD Joseph F. Wetterhahn, MD A. Melynne Youngblood, MD
--- NOTE | 2019-01-26 11:57 | ER ---
DATE OF SERVICE: 01/25/2019 I was asked to consult on this patient for symptomatic bradycardia with left bundle branch block and aortic stenosis. History was obtained from the patient's at the bedside, from discussion with Dr. Patricio Casarez, and from available medical records in the [facility] system, [facility]. The patient was hospitalized at [facility] between 01/06/2019 and 01/10/2019 for knee replacement surgery. He underwent right total knee arthroplasty performed by Dr. Camden Calderon, 01/08/2019. The patient's past medical history includes systemic hypertension, hypothyroidism, glaucoma, left bundle branch block, remote prior smoking history, gastroesophageal reflux disease (GERD), chronic kidney disease. The patient's says that he has never previously seen a feed crusher. I cannot find any echocardiogram Doppler reports in the [facility] system. On the discharge summary, it is listed that he has gout and aortic stenosis, and benign prostatic hypertrophy. During that hospitalization, he had an episode of acute kidney injury. On 01/09/2019, he was noted to have a grade 2/6 systolic ejection murmur. Earlier today, the patient had syncope. Emergency medical services (EMS) found him to have electromechanical disassociation and severe bradycardia. On arrival to the emergency room, his electrocardiogram showed severe bradycardia with LBBB morphology and a somewhat agonal appearance to the tuberous complexes in addition to left bundle branch block. P waves were difficult to discern. Upon my arrival to the patient's bedside in the emergency room, the patient was stuporous, unresponsive, and quite mottled. I was not able to feel any pulses. I recognized that the transthoracic pacing patches on the patient, which were right pectoral and apical position, were not capturing successfully. I cranked the output of the [place] pacing unit to the maximum output, and still there was no pacing. I, therefore, supervised one of the nursing staff to put new patches on, which I supervised, with one patch over the lower left anterior chest and the other patch over the left lower posterior thorax. With the new patches on, successful pacing was obtained. Despite successful pacing, the patient had a very thready pulse, but he became agitated but still nonverbal and unresponsive to verbal command. I spoke with the patient's and explained that he would need a temporary pacemaker. The patient's signed the consent for temporary pacemaker. I then proceeded to insert a temporary transvenous pacemaker, which was very difficult (see separate report). I was able to get successful pacing with the temporary transvenous pacemaker with a captured threshold 1 milliamp, no R waves because the patient was underlying asystolic. I set the pacemaker to [address] Casarez started the patient on an infusion if intravenous (IV) dopamine because the patient was hypotensive, and I concur with that. I spoke with Dr. Sood, the intensive care unit doctor, and asked her to see the patient in consultation to assist with this critically ill patient who was in cardiogenic shock. I requested a stat echocardiogram, which did not get done until the tail end of the cardiac arrest we ran on the patient. The patient remained hypotensive despite high-dose dopamine IV and pacing at 80 beats per minute, and Trendelenburg. I spoke with the patient's and another female family member. I had this conversation with one of the emergency room (ER) nurses. They were told that the patient remained critically ill and that there was a strong possibility that he may and that his blood pressure was extremely low despite pacing and medication to bring his blood pressure up. The and I had a conversation about DNR. The requested that we provide full code measures for him as long as he was in the hospital. While in the emergency room, the patient was intubated and ventilated. On my way back from the family counseling room to the patient's bedside, I learned that the patient was in cardiac arrest, and cardiopulmonary resuscitation (CPR) was in progress. I walked back to the family room where the patient's and other family member were, accompanied by the nurse and Dr. Patricio Casarez. We explained that the patient was in cardiac arrest and CPR was being applied and that the patient was intubated and on a ventilator. The , at this point, requested to provide 3 more minutes of CPR and if he does not recover with that to withdraw CPR. After an additional 3 minutes of CPR, CPR was stopped and a quick, few echo images were obtained (see separate echocardiogram report), which appears to show, most likely severe aortic stenosis with a severely calcified aortic valve that opens very poorly and a severe globally hyperkinetic left ventricle with left ventricle ejection fraction at or below 15-20%. Myself, Dr. Casarez, and the nurse went back and spoke with the and other family member and the requested comfort measures only. We walked the and other family member back to the patient's bedside so they could be with the patient. Temporary pacing at 80 beats per minute was continued, and ventilation on the ventilator also continued. I attended this patient in the emergency room between 7:15 p.m. and 8:35 p.m., of which 30 minutes was spent with implantation of the temporary transvenous pacemaker. My total critical care time with this patient, excluding time for the temporary pacemaker, was 50 minutes.
--- NOTE | 2019-01-26 15:49 | ECGEPIP ---
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
== END 2019-01-25 22:05 | disposition expired ==
LOC: M ED 18:38 → EDBD 18:38 → M ED 22:05
DX: I21.9 Acute myocardial infarction, unspecified (principal); I46.9 Cardiac arrest, cause unspecified; R00.1 Bradycardia, unspecified; I44.7 Left bundle-branch block, unspecified; I35.0 Nonrheumatic aortic (valve) stenosis; I34.8 Other nonrheumatic mitral valve disorders; I10 Essential (primary) hypertension; N18.9 Chronic kidney disease, unspecified; N40.0 Benign prostatic hyperplasia without lower urinary tract symptoms; M10.9 Gout, unspecified; E53.8 Deficiency of other specified B group vitamins; Z87.891 Personal history of nicotine dependence; Z96.651 Presence of right artificial knee joint; I51.7 Cardiomegaly; Z79.02 Long term (current) use of antithrombotics/antiplatelets; Z79.899 Other long term (current) drug therapy; Z88.0 Allergy status to penicillin; Z88.2 Allergy status to sulfonamides; Z88.8 Allergy status to other drugs, medicaments and biological substances
CPT/HCPCS: 31500; 33210; 36600; 71045; 80047; 80048; 80076; 82550; 82553; 82803; 83690; 83735; 84100; 84439; 84443; 84484; 85025; 85610; 85730; 92950; 93005; 93041; 93308; 96374; 99291; J1265